=== PATIENT | female | born 1945 | race Two or more races ===

== ENCOUNTER 2024-07-21 10:38 | Emergency (ER) | payer OTHER ==
[~2024-07-21] VITALS: Ht 154.9 cm; Wt 52.2 kg
[2024-07-21] MEDS ORDERED: LIPITOR20 MG PO (10:52)
[2024-07-21] MEDS ORDERED: LEVOTHYROXINE25 MCG PO (10:53)
[2024-07-21] MEDS ORDERED: LEVALBUTEROL HCL 1.25 MG/3 ML SOLUTION IH ONE ×2 (11:15→11:18)
[2024-07-21] MEDS ORDERED: METHYLPREDNISOLONE SOD SUCC 40 MG VIAL IM ONE (11:15)
[2024-07-21] MEDS ORDERED: BENZONATATE 200 MG CAPSULE PO ONE (11:15)
[2024-07-21] MEDS ORDERED: IPRATROPIUM BROMIDE 0.5 MG/2.5 ML AMPUL.NEB IH ONE ×2 (11:15→11:18)
[2024-07-21 11:26] LABS: ABG PH 7.393 (7.35-7.45); ABG PO2 76.8 mmHg (80-100); BASE EXCESS 0 mmol/l; SaO2 95.1 %; Tco2 26.3 mmol/l
[2024-07-21 11:35] LABS: allen test SATISFACTORY; o2 21 %; puncture site RADIAL RIGHT
[2024-07-21] MEDS ORDERED: METHYLPREDNISOLONE SOD SUCC 40 MG VIAL ONE (11:43)
[2024-07-21 12:12] LABS: HEMATOCRIT 40.5 % (36.0-45.00); HEMOGLOBIN 13.6 g/dL (12.0-15.00); MEAN CELL VOLUME 87.7 fL (80.00-100.00); MEAN CORPUSCULAR HEMOGLOBIN 29.5 pg (27.00-32.0); MEAN CORPUSCULAR HGB CONC 33.7 g/dl (32.0-36.0); PLATELET COUNT 170 K/uL (150-450); RED BLOOD COUNT 4.62 M/uL (4.00-6.00); RED CELL DISTRIBUTION WIDTH 14.2 % (11.5-14.5)
[2024-07-21 12:37] LABS: ALBUMIN 3.8 gm/dL (3.4-5.0); BILIRUBIN TOTAL 0.65 mg/dL (0.3-1.2); CALCIUM 8.9 mg/dL (8.5-10.1); CREATININE SERUM 0.77 mg/dL (0.55-1.02); GFR 72.31; POTASSIUM 3.84 mEq/L (3.5-5.1); TOTAL PROTEIN 7.8 gm/dL (6.4-8.2)
[2024-07-21 13:24] LABS: D DIMER < 0.19 MG/L; FIBRINOGEN 644 mg/dL (187.0-446.0)
[2024-07-21] MEDS ORDERED: SINGULAIR10 MG PO (14:49)
[2024-07-21] MEDS ORDERED: PEPCID AC20 MG PO (14:49)
[2024-07-21] MEDS ORDERED: LEVALBUTER0.63 MG/3 IH (14:49)
[2024-07-21] MEDS ORDERED: ZITHROMAX500 MG PO (14:49)
[2024-07-21] MEDS ORDERED: MEDROLPACK PO (14:49)
== END 2024-07-21 15:38 | disposition home or self-care (01) ==
LOC: ER 10:41
PROVIDERS: General Practice
DX: J40 Bronchitis, not specified as acute or chronic (principal); R06.02 Shortness of breath; Z20.822 Contact with and (suspected) exposure to COVID-19; Z88.8 Allergy status to other drugs, medicaments and biological substances

== ENCOUNTER 2024-11-10 16:00 | Emergency (ER) | payer OTHER ==
[~2024-11-10] VITALS: Ht 157.5 cm; Wt 52.6 kg
[~2024-11-10 16:00] MED LIST: LEVALBUTER0.63 MG/3 IH; LEVOTHYROXINE25 MCG PO; LIPITOR20 MG PO; MEDROLPACK PO; PEPCID AC20 MG PO; SINGULAIR10 MG PO; ZITHROMAX500 MG PO
[2024-11-10] MEDS ORDERED: ORPHENADRINE CITRATE 30 MG/ML AMPUL IM STA (17:22)
== END 2024-11-10 19:27 | disposition home or self-care (01) ==
LOC: ER 16:00
DX: S70.02XA Contusion of left hip, initial encounter (principal); W19.XXXA Unspecified fall, initial encounter; Y93.89 Activity, other specified; Y92.512 Supermarket, store or market as the place of occurrence of the external cause; Y99.8 Other external cause status; M85.80 Other specified disorders of bone density and structure, unspecified site; I10 Essential (primary) hypertension; E03.8 Other specified hypothyroidism